=== PATIENT | male | born 1930 | race Caucasian/White ===

== ENCOUNTER 2017-11-05 | Inpatient (IN) | payer OTHER, MEDICAID ==
[~2017-11-05] VITALS: Ht 172.7 cm; Wt 61.2 kg
[2017-11-05] VITALS (8 sets, daily range): BP systolic 83–120; BP diastolic 41–64
[2017-11-05 00:22] LABS: ABG BASE EXCESS 0.6 mmol/L; ABG OXYGEN SATURATION 92.9 % (92.0-98.5); ABG PCO2 46.4 mmHg (35.0-45.0); ABG PH 7.371 (7.350-7.450); ABG PO2 70.2 mmHg (75.0-100.0); AaDO2 451.5 mmHg; COHb 0.9 % (0.5-1.5); MetHb 0.6 % (0.0-1.5); O2Hb 91.5 % (94.0-97.0); SITE, ABG Left Radial; VENT MODE, BG NRB
[2017-11-05] MEDS ORDERED: NITROGLYCERIN 0.4 MG/TAB BOTTLE ONE (00:22)
[2017-11-05] MEDS ORDERED: FUROSEMIDE 40 MG/4 ML VIAL ONE (00:22)
[2017-11-05] MEDS ORDERED: FUROSEMIDE 40 MG/4 ML VIAL IV ONE (00:30)
[2017-11-05] MEDS ORDERED: NITROGLYCERIN 0.4 MG/TAB BOTTLE SL ONE (00:30)
[2017-11-05] MEDS ORDERED: ASPI-1169 PO (00:34)
[2017-11-05] MEDS ORDERED: LEVE500T9 PO (00:34)
[2017-11-05] MEDS ORDERED: CARV3.12 PO (00:34)
[2017-11-05] MEDS ORDERED: ACET-868 PO (00:34)
[2017-11-05] MEDS ORDERED: DONE10TA11 PO (00:34)
[2017-11-05] MEDS ORDERED: NA P133E RC (00:34)
[2017-11-05] MEDS ORDERED: ONDA4TAB10 PO (00:34)
[2017-11-05] MEDS ORDERED: MULT-447 PO (00:34)
[2017-11-05] MEDS ORDERED: PROHEAL PO (00:34)
[2017-11-05] MEDS ORDERED: TRAZ-144 PO (00:34)
[2017-11-05] MEDS ORDERED: BRIM5DRO3 EACHEYE (00:34)
[2017-11-05] MEDS ORDERED: MAGN400O21 PO (00:34)
[2017-11-05] MEDS ORDERED: BISA-79 PR (00:34)
[2017-11-05] MEDS ORDERED: DIVA250T PO (00:34)
[2017-11-05] MEDS ORDERED: MELA3TAB PO (00:34)
[2017-11-05] MEDS ORDERED: DOCU-141 PO (00:34)
[2017-11-05] MEDS ORDERED: SENN-167 PO (00:34)
[2017-11-05 00:37] LABS: BASOPHILS # (AUTO) 0.1 /CMM (0.0-0.2); BASOPHILS % (AUTO) 0.5 % (0.0-2.0); HEMATOCRIT 37 % (39-51); HEMOGLOBIN 11.9 g/dL (13.5-17.5); LYMPHOCYTES # (AUTO) 0.9 /CMM (0.8-4.8); LYMPHOCYTES % (AUTO) 4.7 % (20.0-44.0); MEAN CORPUSCULAR HEMOGLOBIN 29 PG (26.0-33.0); MEAN CORPUSCULAR HGB CONC 32 g/dl (31.0-36.0); MEAN CORPUSCULAR VOLUME 89 fL (80-96); MONOCYTES # (AUTO) 2.2 /CMM (0.1-1.30); MONOCYTES % (AUTO) 12.3 % (2.0-12.0); NEUTROPHILS # (AUTO) 14.8 /CMM (1.8-8.9); NEUTROPHILS % (AUTO) 82.5 % (43.0-81.0); PLATELET COUNT (AUTO) 237 /CMM (150-450); RDW COEFFICIENT OF VARIATION 16.6 (11.5-15.0); RED BLOOD CELL COUNT(AUTO) 4.16 MIL/uL (4.5-6.0); WHITE BLOOD COUNT (AUTO) 17.9 K/uL (4.3-11.0)
[2017-11-05] MEDS ORDERED: LIDOCAINE 2% JEL UROJET 10 ML MM ONE (00:42)
[2017-11-05 00:55] LABS: INR 1.1 (0.87-1.13)
[2017-11-05] MEDS ORDERED: ACETAMINOPHEN 650 MG/SUPP.RECT RC ONE (00:59)
[2017-11-05 01:00] LABS: CALCIUM, SERUM 11.2 mg/dL (8.5-10.1); CARBON DIOXIDE 29 mmol/L (21-32); CHLORIDE 102 mmol/L (98-107); CREATININE 1.2 mg/dL (0.6-1.3); GLUCOSE 192 mg/dL (74-106); POTASSIUM 4.8 mmol/L (3.5-5.1); SODIUM SERUM 138 mmol/L (136-145); UREA NITROGEN, BLOOD 18 mg/dL (7-18)
[2017-11-05] MEDS ORDERED: IV NS 0.9% 500 ML BAG IV ONE (01:00)
[2017-11-05] MEDS ORDERED: ACETAMINOPHEN 325 MG TABLET PO ONE (01:00)
[2017-11-05 01:07] LABS: TROPONIN I < 0.017 ng/mL (0.00-0.056)
[2017-11-05 01:12] LABS: ALANINE AMINOTRANSFERASE 20 U/L (12-78); ALBUMIN 3.5 g/dL (3.4-5.0); ALKALINE PHOSPHATASE 84 U/L (46-116); ASPARTATE AMINOTRANSFERASE 10 U/L (15-37); B-TYPE NATRIURETIC PEPTIDE 1228 PG/ML (0-125); BILIRUBIN,DIRECT 0.1 mg/dL (0.0-0.2); BILIRUBIN,TOTAL 0.4 mg/dL (0.2-1.0); TOTAL PROTEIN, SERUM 7.7 g/dL (6.4-8.2)
[2017-11-05 01:32] LABS: APPEARANCE,URINE SL CLOUDY (CLEAR); BILIRUBIN,URINE NEGATIVE (NEGATIVE); BLOOD, URINE 2+ Ery/uL (NEGATIVE); COLOR,URINE YELLOW (YELLOW); KETONES,URINE NEGATIVE (NEGATIVE); LEUKOCYTE ESTERASE ,URINE NEGATIVE (NEGATIVE); NITRITE, URINE NEGATIVE (NEGATIVE); PROTEIN,URINE 1+ mg/dl (NEGATIVE); UGLUCOSE TRACE mg/dL (NEGATIVE); UROBILINOGEN,URINE 0.2 EU/dL (0.2)
[2017-11-05 01:41] LABS: RBC,URINE 21-50 /HPF (0-2)
[2017-11-05 01:42] LABS: BACTERIA,URINE 3+ /HPF (None Seen); MUCUS,URINE Few /LPF (None Seen); SQUAMOUS EPITHELIAL CELL,UR Few /HPF (None Seen)
[2017-11-05] MEDS ORDERED: AZTREONAM 1 G in IV NS 0.9% 100 ML IV ONE (02:00)
[2017-11-05] MEDS ORDERED: LEVOFLOXACIN 750 MG /D5W 150ML PIGGYBACK IV ONE (02:00)
[2017-11-05] MEDS ORDERED: AZTREONAM 1 G VIAL ONE (02:07)
[2017-11-05] MEDS ORDERED: LEVOFLOXACIN 750 MG /D5W 150ML 150 ML IV ONE (02:07)
[2017-11-05 05:58] LABS: HEMATOCRIT 34 % (39-51); HEMOGLOBIN 11.1 g/dL (13.5-17.5); LYMPHOCYTES # (AUTO) 0.6 /CMM (0.8-4.8); LYMPHOCYTES % (AUTO) 2.7 % (20.0-44.0); MEAN CORPUSCULAR HEMOGLOBIN 29 PG (26.0-33.0); MEAN CORPUSCULAR HGB CONC 33 g/dl (31.0-36.0); MEAN CORPUSCULAR VOLUME 88 fL (80-96); MONOCYTES # (AUTO) 2.7 /CMM (0.1-1.30); MONOCYTES % (AUTO) 11.7 % (2.0-12.0); NEUTROPHILS # (AUTO) 19.7 /CMM (1.8-8.9); NEUTROPHILS % (AUTO) 85.6 % (43.0-81.0); PLATELET COUNT (AUTO) 193 /CMM (150-450); RDW COEFFICIENT OF VARIATION 15.8 (11.5-15.0); RED BLOOD CELL COUNT(AUTO) 3.83 MIL/uL (4.5-6.0)
[2017-11-05] MEDS ORDERED: AMIN30LI4 PO (07:44)
[2017-11-05] MEDS ORDERED: DIVA250T6 PO (07:44)
[2017-11-05] MEDS ORDERED: DOCU250C14 PO (07:44)
[2017-11-05] MEDS: FUROSEMIDE 40 MG/4 ML VIAL IV SCH ×2 (08:47→20:16)
[2017-11-05] MEDS: ENOXAPARIN SODIUM 30 MG/0.3 ML DISP.SYRIN SQ SCH (08:51)
[2017-11-05] MEDS ORDERED: VANCOMYCIN 1 GM in IV D5W 250 ML IV ONE (09:00)
[2017-11-05] MEDS ORDERED: LEVOFLOXACIN 500 MG /D5W 100ML 500 MG in PREMIX 1 EA IV ONE (09:00)
[2017-11-05 09:30] LABS: TROPONIN I < 0.017 ng/mL (0.00-0.056)
[2017-11-05 10:51] LABS: BAND % (MANUAL) 12 % (0.0-5.0); MONOCYTES % (MANUAL) 11 % (0-11.0); NEUTROPHILS % (MANUAL) 77 (42-76)
[2017-11-05 11:02] LABS: ALANINE AMINOTRANSFERASE 16 U/L (12-78); ALBUMIN 2.9 g/dL (3.4-5.0); ALKALINE PHOSPHATASE 71 U/L (46-116); ASPARTATE AMINOTRANSFERASE 11 U/L (15-37); BILIRUBIN,TOTAL 0.6 mg/dL (0.2-1.0); CALCIUM, SERUM 10.9 mg/dL (8.5-10.1); CARBON DIOXIDE 24 mmol/L (21-32); CHLORIDE 104 mmol/L (98-107); CREATININE 1.6 mg/dL (0.6-1.3); GLUCOSE 115 mg/dL (74-106); POTASSIUM 4.6 mmol/L (3.5-5.1); SODIUM SERUM 139 mmol/L (136-145); TOTAL PROTEIN, SERUM 6.9 g/dL (6.4-8.2); UREA NITROGEN, BLOOD 22 mg/dL (7-18)
[2017-11-05] MEDS: AZTREONAM 2 G in IV NS 0.9% 100 ML IV SCH ×2 (12:14→17:35)
[2017-11-05] MEDS ORDERED: AZTREONAM 1 G VIAL IM SCH (13:00)
[2017-11-05 13:20] LABS: CHOLESTEROL 120 mg/dL (<200); HDL CHOLESTEROL 39 mg/dL (40-60); LDL 99 mg/dL (0-99); TRIGLYCERIDES 48 mg/dL (30-150)
[2017-11-05] MEDS ORDERED: FEE PK DOSING 1 MIN EA MC ONE (15:07)
[2017-11-05 15:45] LABS: THYROID STIMULATING HORMONE 0.402 uIU/mL (0.358-3.74)
[2017-11-05] MEDS: VANCOMYCIN 500 MG in IV D5W 100 ML IV SCH (20:19)
[2017-11-06] VITALS (7 sets, daily range): BP systolic 100–173; BP diastolic 54–79
[2017-11-06] MEDS: AZTREONAM 2 G in IV NS 0.9% 100 ML IV SCH (02:11)
[2017-11-06 06:38] LABS: EOSINOPHILS % (AUTO) 0.1 % (0.0-6.0); HEMATOCRIT 31 % (39-51); HEMOGLOBIN 10.5 g/dL (13.5-17.5); LYMPHOCYTES # (AUTO) 1.3 /CMM (0.8-4.8); LYMPHOCYTES % (AUTO) 6.3 % (20.0-44.0); MEAN CORPUSCULAR HEMOGLOBIN 30 PG (26.0-33.0); MEAN CORPUSCULAR HGB CONC 34 g/dl (31.0-36.0); MEAN CORPUSCULAR VOLUME 86 fL (80-96); MONOCYTES # (AUTO) 2.4 /CMM (0.1-1.30); MONOCYTES % (AUTO) 11.5 % (2.0-12.0); NEUTROPHILS # (AUTO) 17.5 /CMM (1.8-8.9); NEUTROPHILS % (AUTO) 82.1 % (43.0-81.0); PLATELET COUNT (AUTO) 185 /CMM (150-450); RDW COEFFICIENT OF VARIATION 15.1 (11.5-15.0); RED BLOOD CELL COUNT(AUTO) 3.56 MIL/uL (4.5-6.0); WHITE BLOOD COUNT (AUTO) 21.2 K/uL (4.3-11.0)
[2017-11-06 06:50] LABS: ALANINE AMINOTRANSFERASE 14 U/L (12-78); ALBUMIN 2.6 g/dL (3.4-5.0); ALKALINE PHOSPHATASE 70 U/L (46-116); ASPARTATE AMINOTRANSFERASE 9 U/L (15-37); BILIRUBIN,TOTAL 0.3 mg/dL (0.2-1.0); CALCIUM, SERUM 10.8 mg/dL (8.5-10.1); CARBON DIOXIDE 29 mmol/L (21-32); CHLORIDE 105 mmol/L (98-107); CREATININE 2.6 mg/dL (0.6-1.3); GLUCOSE 103 mg/dL (74-106); MAGNESIUM 2.1 mg/dL (1.8-2.4); PHOSPHORUS 2.8 mg/dL (2.5-4.9); POTASSIUM 4.7 mmol/L (3.5-5.1); SODIUM SERUM 141 mmol/L (136-145); TOTAL PROTEIN, SERUM 6.9 g/dL (6.4-8.2); UREA NITROGEN, BLOOD 42 mg/dL (7-18)
[2017-11-06 07:52] LABS: B-TYPE NATRIURETIC PEPTIDE 3198 PG/ML (0-125)
[2017-11-06 07:53] LABS: TROPONIN I < 0.017 ng/mL (0.00-0.056)
[2017-11-06] MEDS: LEVOFLOXACIN 250 MG /D5W 50 ML 250 MG in PREMIX 1 EA IV SCH (08:51)
[2017-11-06] MEDS: ENOXAPARIN SODIUM 30 MG/0.3 ML DISP.SYRIN SQ SCH (09:04)
[2017-11-06] MEDS ORDERED: MAGNESIUM HYDROXIDE 30 ML UDC PO PRN (10:00)
[2017-11-06] MEDS ORDERED: BISACODYL (5 MG) 5 MG TABLET.DR PO PRN (10:00)
[2017-11-06] MEDS: CARVEDILOL 3.125 MG TABLET PO SCH ×2 (10:00→16:24)
[2017-11-06] MEDS ORDERED: ACETAMINOPHEN 325 MG TABLET PO PRN (10:00)
[2017-11-06] MEDS ORDERED: Medication Not On Formulary EA (Melatonin 3 MG) PO PRN (10:00)
[2017-11-06] MEDS ORDERED: NA PHOS,M-B/NA PHOS,DI-BA 1 EA ENEMA RC PRN (10:00)
[2017-11-06] MEDS ORDERED: ONDANSETRON 4 MG TAB.RAPDIS PO PRN (10:30)
[2017-11-06] MEDS: VANCOMYCIN 500 MG in IV D5W 100 ML IV SCH (10:34)
[2017-11-06 10:40] LABS: BAND % (MANUAL) 19 % (0.0-5.0); LYMPHOCYTES % (MANUAL) 5 % (16-48); MONOCYTES % (MANUAL) 4 % (0-11.0); NEUTROPHILS % (MANUAL) 72 (42-76)
[2017-11-06 11:22] LABS: ABG BASE EXCESS 1.9 mmol/L; ABG OXYGEN SATURATION 94.2 % (92.0-98.5); ABG PH 7.435 (7.350-7.450); ABG PO2 72.5 mmHg (75.0-100.0); AaDO2 137.8 mmHg; COHb 0.3 % (0.5-1.5); MetHb 0.4 % (0.0-1.5); O2Hb 93.5 % (94.0-97.0); SITE, ABG Right Radial
[2017-11-06] MEDS: DOCUSATE SODIUM 250 MG CAPSULE PO SCH ×2 (11:50→16:18)
[2017-11-06] MEDS: BRIMONIDINE TARTRATE OPHT SOLN 5 ML BOTTLE EACHEYE SCH ×2 (11:50→16:18)
[2017-11-06] MEDS: PROSOURCE / PROSTAT (PYXIS) 30 ML UDC PO SCH ×3 (11:50→16:18)
[2017-11-06] MEDS: DIVALPROEX SODIUM 250 MG TABLET.DR PO SCH ×2 (11:50→16:18)
[2017-11-06] MEDS: MULTIVIT, IRON, MIN NO. 8, FA 1 TAB PO SCH (11:50)
[2017-11-06] MEDS: LEVETIRACETAM (250 MG) 250 MG TABLET PO SCH ×2 (11:51→21:30)
[2017-11-06] MEDS: ASPIRIN 81 MG TAB.CHEW PO SCH (11:51)
[2017-11-06] MEDS: AZTREONAM 1 G in IV NS 0.9% 100 ML IV SCH ×2 (13:14→18:01)
[2017-11-06 17:23] LABS: APPEARANCE,URINE CLEAR (CLEAR)
[2017-11-06 17:24] LABS: BILIRUBIN,URINE NEGATIVE (NEGATIVE); BLOOD, URINE 3+ Ery/uL (NEGATIVE); COLOR,URINE YELLOW (YELLOW); PROTEIN,URINE 2+ mg/dl (NEGATIVE); UGLUCOSE NEGATIVE (NEGATIVE)
[2017-11-06 17:25] LABS: KETONES,URINE NEGATIVE (NEGATIVE); LEUKOCYTE ESTERASE ,URINE NEGATIVE (NEGATIVE); NITRITE, URINE NEGATIVE (NEGATIVE); UROBILINOGEN,URINE 0.2 EU/dL (0.2)
[2017-11-06 18:05] LABS: CREATININE, URINE 117.3 MG/DL (30.0-125.0); URINE TOTAL PROTEIN 184.5 mg/dL (0-11.9)
[2017-11-06 18:43] LABS: BACTERIA,URINE 1+ /HPF (None Seen); SQUAMOUS EPITHELIAL CELL,UR 0-2 /HPF (None Seen); URINE AMORPHOUS URATE Few /HPF (None Seen); WBC,URINE 0-2 /HPF (0-3)
[2017-11-06 19:03] LABS: EOSINOPHIL,URINE None Seen
[2017-11-06] MEDS: SENNOSIDES 8.6 MG TABLET PO SCH (21:33)
[2017-11-06] MEDS: TRAZODONE 50 MG TABLET PO SCH (21:33)
[2017-11-06] MEDS: DONEPEZIL 5 MG TABLET PO SCH (21:33)
[2017-11-07] VITALS (8 sets, daily range): BP systolic 142–191; BP diastolic 69–88
[2017-11-07] MEDS: AZTREONAM 1 G in IV NS 0.9% 100 ML IV SCH ×2 (02:34→11:10)
[2017-11-07 06:34] LABS: EOSINOPHILS % (AUTO) 0.1 % (0.0-6.0); HEMATOCRIT 31 % (39-51); HEMOGLOBIN 10.3 g/dL (13.5-17.5); LYMPHOCYTES # (AUTO) 0.9 /CMM (0.8-4.8); LYMPHOCYTES % (AUTO) 7.5 % (20.0-44.0); MEAN CORPUSCULAR HEMOGLOBIN 29 PG (26.0-33.0); MEAN CORPUSCULAR HGB CONC 33 g/dl (31.0-36.0); MEAN CORPUSCULAR VOLUME 88 fL (80-96); MONOCYTES # (AUTO) 1.3 /CMM (0.1-1.30); MONOCYTES % (AUTO) 11.1 % (2.0-12.0); NEUTROPHILS # (AUTO) 9.8 /CMM (1.8-8.9); NEUTROPHILS % (AUTO) 81.3 % (43.0-81.0); PLATELET COUNT (AUTO) 151 /CMM (150-450); RDW COEFFICIENT OF VARIATION 16.3 (11.5-15.0); RED BLOOD CELL COUNT(AUTO) 3.55 MIL/uL (4.5-6.0); WHITE BLOOD COUNT (AUTO) 12.1 K/uL (4.3-11.0)
[2017-11-07 06:58] LABS: ALANINE AMINOTRANSFERASE 13 U/L (12-78); ALBUMIN 2.5 g/dL (3.4-5.0); ALKALINE PHOSPHATASE 71 U/L (46-116); ASPARTATE AMINOTRANSFERASE 18 U/L (15-37); BILIRUBIN,TOTAL 0.3 mg/dL (0.2-1.0); CALCIUM, SERUM 10.2 mg/dL (8.5-10.1); CARBON DIOXIDE 26 mmol/L (21-32); CHLORIDE 105 mmol/L (98-107); CREATININE 1.9 mg/dL (0.6-1.3); GLUCOSE 98 mg/dL (74-106); MAGNESIUM 2.3 mg/dL (1.8-2.4); PHOSPHORUS 2.4 mg/dL (2.5-4.9); POTASSIUM 4.4 mmol/L (3.5-5.1); SODIUM SERUM 139 mmol/L (136-145); TOTAL PROTEIN, SERUM 6.9 g/dL (6.4-8.2); UREA NITROGEN, BLOOD 47 mg/dL (7-18)
[2017-11-07 07:21] LABS: CREATINE KINASE, TOTAL 53 U/L (39-308)
[2017-11-07 08:55] LABS: ABG BASE EXCESS 1.4 mmol/L; ABG OXYGEN SATURATION 96.2 % (92.0-98.5); ABG PO2 93.8 mmHg (75.0-100.0); AaDO2 71.9 mmHg; COHb 0.3 % (0.5-1.5); MetHb 1.3 % (0.0-1.5); O2Hb 94.7 % (94.0-97.0); SITE, ABG Right Radial; VENT MODE, BG NC 4L
[2017-11-07] MEDS: LEVOFLOXACIN 250 MG /D5W 50 ML 250 MG in PREMIX 1 EA IV SCH (09:02)
[2017-11-07] MEDS: DOCUSATE SODIUM 250 MG CAPSULE PO SCH ×2 (09:03→17:47)
[2017-11-07] MEDS: DIVALPROEX SODIUM 250 MG TABLET.DR PO SCH ×2 (09:03→17:47)
[2017-11-07] MEDS: MULTIVIT, IRON, MIN NO. 8, FA 1 TAB PO SCH (09:03)
[2017-11-07] MEDS: LEVETIRACETAM (250 MG) 250 MG TABLET PO SCH ×2 (09:04→21:23)
[2017-11-07] MEDS: ASPIRIN 81 MG TAB.CHEW PO SCH (09:04)
[2017-11-07] MEDS: CARVEDILOL 3.125 MG TABLET PO SCH ×2 (09:05→17:48)
[2017-11-07] MEDS: ENOXAPARIN SODIUM 30 MG/0.3 ML DISP.SYRIN SQ SCH (09:07)
[2017-11-07] MEDS: PROSOURCE / PROSTAT (PYXIS) 30 ML UDC PO SCH ×3 (09:39→17:49)
[2017-11-07] MEDS: BRIMONIDINE TARTRATE OPHT SOLN 5 ML BOTTLE EACHEYE SCH ×2 (09:40→17:46)
[2017-11-07] MEDS ORDERED: VANCOMYCIN 500 MG in IV D5W 100 ML IV SCH (10:30)
[2017-11-07] MEDS ORDERED: K PHOS NEUTRAL 250 MG TABLET PO ONE (13:00)
[2017-11-07] MEDS: DONEPEZIL 5 MG TABLET PO SCH (21:23)
[2017-11-07] MEDS: SENNOSIDES 8.6 MG TABLET PO SCH (21:24)
[2017-11-07] MEDS: TRAZODONE 50 MG TABLET PO SCH (21:24)
[2017-11-07] MEDS ORDERED: CLONIDINE HCL 0.1 MG TABLET ONE (22:43)
[2017-11-07] MEDS: CLONIDINE HCL 0.1 MG TABLET PO PRN (22:46)
[2017-11-08] VITALS (7 sets, daily range): BP systolic 126–175; BP diastolic 62–97
[2017-11-08] MEDS ORDERED: LORAZEPAM 0.5 MG TABLET ONE (02:21)
[2017-11-08] MEDS: LORAZEPAM 0.5 MG TABLET PO PRN (02:23)
[2017-11-08 06:37] LABS: CALCIUM, SERUM 10.7 mg/dL (8.5-10.1); CARBON DIOXIDE 27 mmol/L (21-32); CHLORIDE 106 mmol/L (98-107); CREATININE 1.3 mg/dL (0.6-1.3); GLUCOSE 114 mg/dL (74-106); PHOSPHORUS 2.3 mg/dL (2.5-4.9); POTASSIUM 4.4 mmol/L (3.5-5.1); SODIUM SERUM 141 mmol/L (136-145); UREA NITROGEN, BLOOD 41 mg/dL (7-18)
[2017-11-08] MEDS: LEVOFLOXACIN 250 MG /D5W 50 ML 250 MG in PREMIX 1 EA IV SCH (08:34)
[2017-11-08] MEDS: ASPIRIN 81 MG TAB.CHEW PO SCH (08:37)
[2017-11-08] MEDS: MULTIVIT, IRON, MIN NO. 8, FA 1 TAB PO SCH (08:37)
[2017-11-08] MEDS: LEVETIRACETAM (250 MG) 250 MG TABLET PO SCH ×2 (08:37→21:25)
[2017-11-08] MEDS: DIVALPROEX SODIUM 250 MG TABLET.DR PO SCH ×2 (08:37→16:21)
[2017-11-08] MEDS: BRIMONIDINE TARTRATE OPHT SOLN 5 ML BOTTLE EACHEYE SCH ×2 (08:38→15:48)
[2017-11-08] MEDS: CARVEDILOL 3.125 MG TABLET PO SCH ×2 (08:38→15:50)
[2017-11-08] MEDS: PROSOURCE / PROSTAT (PYXIS) 30 ML UDC PO SCH ×3 (08:40→15:49)
[2017-11-08] MEDS: DOCUSATE SODIUM 250 MG CAPSULE PO SCH ×2 (09:00→15:48)
[2017-11-08] MEDS: ENOXAPARIN SODIUM 30 MG/0.3 ML DISP.SYRIN SQ SCH (09:01)
[2017-11-08] MEDS ORDERED: K PHOS NEUTRAL 250 MG TABLET PO ONE (13:30)
[2017-11-08 17:34] LABS: APPEARANCE,URINE SL CLOUDY (CLEAR); BILIRUBIN,URINE NEGATIVE (NEGATIVE); BLOOD, URINE 3+ Ery/uL (NEGATIVE); COLOR,URINE AMBER (YELLOW); KETONES,URINE NEGATIVE (NEGATIVE); LEUKOCYTE ESTERASE ,URINE TRACE (NEGATIVE); NITRITE, URINE NEGATIVE (NEGATIVE); PROTEIN,URINE 2+ mg/dl (NEGATIVE); UGLUCOSE NEGATIVE (NEGATIVE); UROBILINOGEN,URINE 0.2 EU/dL (0.2)
[2017-11-08 18:06] LABS: BACTERIA,URINE Rare /HPF (None Seen); RBC,URINE TOO NUMEROUS TO COUN /HPF (0-2); SQUAMOUS EPITHELIAL CELL,UR None Seen /HPF (None Seen); WBC,URINE 0-2 /HPF (0-3)
[2017-11-08] MEDS: DONEPEZIL 5 MG TABLET PO SCH (21:25)
[2017-11-08] MEDS: SENNOSIDES 8.6 MG TABLET PO SCH (21:26)
[2017-11-08] MEDS: TRAZODONE 50 MG TABLET PO SCH (21:26)
[2017-11-08] MEDS: CLONIDINE HCL 0.1 MG TABLET PO PRN (22:38)
[2017-11-09] VITALS: BP 103/56
[2017-11-09] MEDS: LORAZEPAM 0.5 MG TABLET PO PRN ×3 (00:10→17:52)
[2017-11-09 04:00] VITALS: BP 152/75
[2017-11-09 06:50] LABS: CALCIUM, SERUM 10.1 mg/dL (8.5-10.1); CARBON DIOXIDE 29 mmol/L (21-32); CHLORIDE 108 mmol/L (98-107); CREATININE 1.2 mg/dL (0.6-1.3); GLUCOSE 119 mg/dL (74-106); PHOSPHORUS 2.6 mg/dL (2.5-4.9); POTASSIUM 4.1 mmol/L (3.5-5.1); SODIUM SERUM 142 mmol/L (136-145); UREA NITROGEN, BLOOD 36 mg/dL (7-18)
[2017-11-09 08:00] VITALS: BP 122/55
[2017-11-09] MEDS: DOCUSATE SODIUM 250 MG CAPSULE PO SCH ×2 (08:46→16:25)
[2017-11-09] MEDS: DIVALPROEX SODIUM 250 MG TABLET.DR PO SCH ×3 (08:46→16:25)
[2017-11-09] MEDS: MULTIVIT, IRON, MIN NO. 8, FA 1 TAB PO SCH (08:46)
[2017-11-09] MEDS: ASPIRIN 81 MG TAB.CHEW PO SCH (08:46)
[2017-11-09] MEDS: LEVOFLOXACIN 250 MG /D5W 50 ML 250 MG in PREMIX 1 EA IV SCH (08:49)
[2017-11-09] MEDS: ENOXAPARIN SODIUM 30 MG/0.3 ML DISP.SYRIN SQ SCH (08:50)
[2017-11-09] MEDS: PROSOURCE / PROSTAT (PYXIS) 30 ML UDC PO SCH ×3 (08:50→16:28)
[2017-11-09] MEDS: CARVEDILOL 3.125 MG TABLET PO SCH ×2 (08:50→16:27)
[2017-11-09] MEDS: BRIMONIDINE TARTRATE OPHT SOLN 5 ML BOTTLE EACHEYE SCH ×2 (09:09→16:28)
[2017-11-09] MEDS: LEVETIRACETAM (250 MG) 250 MG TABLET PO SCH ×2 (09:09→21:21)
[2017-11-09] MEDS: risperiDONE 0.25 MG TABLET PO SCH ×2 (12:18→16:25)
[2017-11-09] MEDS: BENZTROPINE MESYLATE (1 MG) 1 MG TABLET PO SCH ×2 (12:19→16:25)
[2017-11-09 16:00] VITALS: BP 113/64
[2017-11-09 20:00] VITALS: BP 126/69
[2017-11-09] MEDS: DONEPEZIL 5 MG TABLET PO SCH (21:21)
[2017-11-09] MEDS: TRAZODONE 50 MG TABLET PO SCH (21:22)
[2017-11-09] MEDS: SENNOSIDES 8.6 MG TABLET PO SCH (21:22)
[2017-11-10] MEDS: LORAZEPAM 0.5 MG TABLET PO PRN ×3 (00:48→22:09)
[2017-11-10 04:00] VITALS: BP 132/66
[2017-11-10 07:36] LABS: CALCIUM, SERUM 10.4 mg/dL (8.5-10.1); CARBON DIOXIDE 31 mmol/L (21-32); CHLORIDE 109 mmol/L (98-107); CREATININE 1.2 mg/dL (0.6-1.3); GLUCOSE 103 mg/dL (74-106); POTASSIUM 3.9 mmol/L (3.5-5.1); SODIUM SERUM 144 mmol/L (136-145); UREA NITROGEN, BLOOD 34 mg/dL (7-18)
[2017-11-10] MEDS: LEVOFLOXACIN 250 MG /D5W 50 ML 250 MG in PREMIX 1 EA IV SCH (09:41)
[2017-11-10] MEDS: risperiDONE 0.25 MG TABLET PO SCH ×4 (09:41→22:00)
[2017-11-10] MEDS: DIVALPROEX SODIUM 250 MG TABLET.DR PO SCH ×3 (09:41→16:49)
[2017-11-10] MEDS: BENZTROPINE MESYLATE (1 MG) 1 MG TABLET PO SCH ×3 (09:41→16:50)
[2017-11-10] MEDS: ASPIRIN 81 MG TAB.CHEW PO SCH (09:41)
[2017-11-10] MEDS: DOCUSATE SODIUM 250 MG CAPSULE PO SCH ×2 (09:41→16:49)
[2017-11-10] MEDS: MULTIVIT, IRON, MIN NO. 8, FA 1 TAB PO SCH (09:41)
[2017-11-10] MEDS: LEVETIRACETAM (250 MG) 250 MG TABLET PO SCH ×2 (09:42→22:09)
[2017-11-10] MEDS: PROSOURCE / PROSTAT (PYXIS) 30 ML UDC PO SCH ×3 (09:42→16:50)
[2017-11-10] MEDS: CARVEDILOL 3.125 MG TABLET PO SCH ×2 (09:43→16:50)
[2017-11-10] MEDS: ENOXAPARIN SODIUM 30 MG/0.3 ML DISP.SYRIN SQ SCH (09:54)
[2017-11-10] MEDS: BRIMONIDINE TARTRATE OPHT SOLN 5 ML BOTTLE EACHEYE SCH ×2 (09:55→16:51)
[2017-11-10 12:00] VITALS: BP 154/69
[2017-11-10 20:00] VITALS: BP 154/87
[2017-11-10] MEDS: TRAZODONE 50 MG TABLET PO SCH (22:09)
[2017-11-10] MEDS: DONEPEZIL 5 MG TABLET PO SCH (22:10)
[2017-11-10] MEDS: SENNOSIDES 8.6 MG TABLET PO SCH (22:10)
[2017-11-10] MEDS ORDERED: risperiDONE 1 MG TABLET ONE (23:07)
[2017-11-11 04:00] VITALS: BP 166/83
[2017-11-11 06:45] VITALS: BP 146/67
[2017-11-11 08:00] VITALS: BP 124/68
[2017-11-11 08:08] LABS: *SPE A/G RATIO 0.9 (0.7-1.7); *SPE ALBUMIN 2.8 g/dL (2.9-4.4); *SPE ALPHA-1-GLOBULIN 0.4 g/dL (0.0-0.4); *SPE BETA GLOBULIN 0.7 g/dL (0.7-1.3); *SPE M-SPIKE 0.6 g/dL (Not Observed); *SPEGAMMA GLOBULIN 0.9 g/dL (0.4-1.8)
[2017-11-11 08:13] LABS: BASOPHILS % (AUTO) 0.2 % (0.0-2.0); EOSINOPHILS # (AUTO) 0.1 /CMM (0.0-0.7); EOSINOPHILS % (AUTO) 1.1 % (0.0-6.0); HEMATOCRIT 30 % (39-51); HEMOGLOBIN 9.9 g/dL (13.5-17.5); LYMPHOCYTES # (AUTO) 1.3 /CMM (0.8-4.8); LYMPHOCYTES % (AUTO) 18.6 % (20.0-44.0); MEAN CORPUSCULAR HEMOGLOBIN 29 PG (26.0-33.0); MEAN CORPUSCULAR HGB CONC 33 g/dl (31.0-36.0); MEAN CORPUSCULAR VOLUME 87 fL (80-96); MONOCYTES # (AUTO) 0.8 /CMM (0.1-1.30); NEUTROPHILS # (AUTO) 4.8 /CMM (1.8-8.9); NEUTROPHILS % (AUTO) 68.1 % (43.0-81.0); PLATELET COUNT (AUTO) 211 /CMM (150-450); RDW COEFFICIENT OF VARIATION 16.6 (11.5-15.0); RED BLOOD CELL COUNT(AUTO) 3.43 MIL/uL (4.5-6.0)
[2017-11-11 08:21] LABS: CALCIUM, SERUM 10.7 mg/dL (8.5-10.1); CARBON DIOXIDE 29 mmol/L (21-32); CHLORIDE 110 mmol/L (98-107); CREATININE 1.2 mg/dL (0.6-1.3); GLUCOSE 97 mg/dL (74-106); MAGNESIUM 2.5 mg/dL (1.8-2.4); PHOSPHORUS 2.7 mg/dL (2.5-4.9); POTASSIUM 4.1 mmol/L (3.5-5.1); SODIUM SERUM 144 mmol/L (136-145); UREA NITROGEN, BLOOD 33 mg/dL (7-18)
[2017-11-11] MEDS: ENOXAPARIN SODIUM 30 MG/0.3 ML DISP.SYRIN SQ SCH (08:44)
[2017-11-11] MEDS: LEVOFLOXACIN (250MG) 250 MG TABLET PO SCH (08:47)
[2017-11-11] MEDS: PROSOURCE / PROSTAT (PYXIS) 30 ML UDC PO SCH ×3 (08:47→17:49)
[2017-11-11] MEDS: LEVETIRACETAM (250 MG) 250 MG TABLET PO SCH ×2 (08:47→20:50)
[2017-11-11] MEDS: DOCUSATE SODIUM 250 MG CAPSULE PO SCH ×2 (08:47→17:49)
[2017-11-11] MEDS: risperiDONE 0.25 MG TABLET PO SCH ×4 (08:47→21:59)
[2017-11-11] MEDS: ASPIRIN 81 MG TAB.CHEW PO SCH (08:48)
[2017-11-11] MEDS: MULTIVIT, IRON, MIN NO. 8, FA 1 TAB PO SCH (08:48)
[2017-11-11] MEDS: BENZTROPINE MESYLATE (1 MG) 1 MG TABLET PO SCH ×3 (08:48→17:49)
[2017-11-11] MEDS: DIVALPROEX SODIUM 250 MG TABLET.DR PO SCH ×3 (08:48→17:49)
[2017-11-11] MEDS: CARVEDILOL 3.125 MG TABLET PO SCH ×2 (08:48→17:49)
[2017-11-11] MEDS: BRIMONIDINE TARTRATE OPHT SOLN 5 ML BOTTLE EACHEYE SCH ×2 (08:49→17:49)
[2017-11-11 16:00] VITALS: BP_SYST 124; BP_SYST 149; BP_DIAS 68; BP_DIAS 84
[2017-11-11 20:00] VITALS: BP 138/75
[2017-11-11 20:25] VITALS: BP 138/75
[2017-11-11] MEDS: LORAZEPAM 0.5 MG TABLET PO SCH (21:53)
[2017-11-11] MEDS: DONEPEZIL 5 MG TABLET PO SCH (21:58)
[2017-11-11] MEDS: SENNOSIDES 8.6 MG TABLET PO SCH (21:59)
[2017-11-11] MEDS ORDERED: DIVALPROEX SODIUM 250 MG TABLET.DR PO SCH (22:00)
[2017-11-12 04:00] VITALS: BP 122/63
[2017-11-12 04:01] VITALS: BP 122/63
[2017-11-12] MEDS: CARVEDILOL 3.125 MG TABLET PO SCH ×2 (09:00→16:40)
[2017-11-12] MEDS: DOCUSATE SODIUM 250 MG CAPSULE PO SCH ×2 (09:00→16:41)
[2017-11-12] MEDS: BENZTROPINE MESYLATE (1 MG) 1 MG TABLET PO SCH ×3 (09:29→16:40)
[2017-11-12] MEDS: DIVALPROEX SODIUM 250 MG TABLET.DR PO SCH ×3 (09:29→16:40)
[2017-11-12] MEDS: BRIMONIDINE TARTRATE OPHT SOLN 5 ML BOTTLE EACHEYE SCH ×2 (09:29→16:41)
[2017-11-12] MEDS: ASPIRIN 81 MG TAB.CHEW PO SCH (09:29)
[2017-11-12] MEDS: LEVOFLOXACIN (250MG) 250 MG TABLET PO SCH (09:29)
[2017-11-12] MEDS: MULTIVIT, IRON, MIN NO. 8, FA 1 TAB PO SCH (09:29)
[2017-11-12] MEDS: risperiDONE 0.25 MG TABLET PO SCH ×3 (09:29→16:40)
[2017-11-12] MEDS: LEVETIRACETAM (250 MG) 250 MG TABLET PO SCH ×2 (09:29→21:01)
[2017-11-12] MEDS: PROSOURCE / PROSTAT (PYXIS) 30 ML UDC PO SCH ×3 (09:31→16:41)
[2017-11-12] MEDS: ENOXAPARIN SODIUM 30 MG/0.3 ML DISP.SYRIN SQ SCH (09:33)
[2017-11-12 09:48] VITALS: BP 141/73
[2017-11-12] MEDS: CLONIDINE HCL 0.1 MG TABLET PO PRN (15:44)
[2017-11-12 16:00] VITALS: BP 164/84
[2017-11-12] MEDS: risperiDONE-M 0.5 MG TAB.RAPDIS PO SCH (18:00)
[2017-11-12 20:00] VITALS: BP 137/76
[2017-11-12] MEDS: DIVALPROEX SODIUM 125 MG CAP.SPRINK PO SCH (21:00)
[2017-11-12] MEDS: DONEPEZIL 5 MG TABLET PO SCH (22:12)
[2017-11-12] MEDS: SENNOSIDES 8.6 MG TABLET PO SCH (22:13)
[2017-11-12] MEDS: LORAZEPAM 0.5 MG TABLET PO SCH (22:13)
[2017-11-13 08:00] VITALS: BP 137/69
[2017-11-13 08:24] LABS: CARBON DIOXIDE 29 mmol/L (21-32); CHLORIDE 110 mmol/L (98-107); CREATININE 1.2 mg/dL (0.6-1.3); GLUCOSE 90 mg/dL (74-106); MAGNESIUM 2.3 mg/dL (1.8-2.4); PHOSPHORUS 2.5 mg/dL (2.5-4.9); POTASSIUM 4.8 mmol/L (3.5-5.1); SODIUM SERUM 144 mmol/L (136-145); UREA NITROGEN, BLOOD 30 mg/dL (7-18)
[2017-11-13] MEDS: BRIMONIDINE TARTRATE OPHT SOLN 5 ML BOTTLE EACHEYE SCH ×2 (08:48→17:45)
[2017-11-13] MEDS: CARVEDILOL 3.125 MG TABLET PO SCH ×2 (08:50→17:40)
[2017-11-13] MEDS: DIVALPROEX SODIUM 125 MG CAP.SPRINK PO SCH ×3 (08:50→17:39)
[2017-11-13] MEDS: LEVOFLOXACIN (250MG) 250 MG TABLET PO SCH (08:50)
[2017-11-13] MEDS: ASPIRIN 81 MG TAB.CHEW PO SCH (08:50)
[2017-11-13] MEDS: DOCUSATE SODIUM 250 MG CAPSULE PO SCH ×2 (08:51→17:40)
[2017-11-13] MEDS: risperiDONE-M 0.5 MG TAB.RAPDIS PO SCH ×4 (08:51→20:20)
[2017-11-13] MEDS: MULTIVIT, IRON, MIN NO. 8, FA 1 TAB PO SCH (08:51)
[2017-11-13] MEDS: LEVETIRACETAM (250 MG) 250 MG TABLET PO SCH ×2 (08:52→20:20)
[2017-11-13] MEDS: PROSOURCE / PROSTAT (PYXIS) 30 ML UDC PO SCH ×3 (08:54→17:41)
[2017-11-13] MEDS ORDERED: BENZTROPINE MESYLATE (1 MG) 1 MG TABLET PO SCH (09:00)
[2017-11-13] MEDS: ENOXAPARIN SODIUM 30 MG/0.3 ML DISP.SYRIN SQ SCH (09:06)
[2017-11-13] MEDS ORDERED: Z GUARD REMEDY 2 OZ OINT TP PRN (10:30)
[2017-11-13 11:28] LABS: EOSINOPHILS % (AUTO) 0.7 % (0.0-6.0); HEMATOCRIT 27 % (39-51); HEMOGLOBIN 8.9 g/dL (13.5-17.5); LYMPHOCYTES # (AUTO) 1.1 /CMM (0.8-4.8); LYMPHOCYTES % (AUTO) 20.4 % (20.0-44.0); MEAN CORPUSCULAR HEMOGLOBIN 29 PG (26.0-33.0); MEAN CORPUSCULAR HGB CONC 33 g/dl (31.0-36.0); MEAN CORPUSCULAR VOLUME 86 fL (80-96); MONOCYTES # (AUTO) 0.5 /CMM (0.1-1.30); MONOCYTES % (AUTO) 8.6 % (2.0-12.0); NEUTROPHILS # (AUTO) 3.8 /CMM (1.8-8.9); NEUTROPHILS % (AUTO) 70.3 % (43.0-81.0); PLATELET COUNT (AUTO) 229 /CMM (150-450); RDW COEFFICIENT OF VARIATION 15.8 (11.5-15.0); WHITE BLOOD COUNT (AUTO) 5.4 K/uL (4.3-11.0)
[2017-11-13] MEDS: BENZTROPINE MESYLATE (1 MG) 1 MG TABLET PO SCH ×2 (12:25→17:40)
[2017-11-13 15:53] VITALS: BP 160/72
[2017-11-13 16:00] VITALS: BP 160/72
[2017-11-13 20:00] VITALS: BP 140/66
[2017-11-13] MEDS: LORAZEPAM 0.5 MG TABLET PO SCH (21:16)
[2017-11-13] MEDS: SENNOSIDES 8.6 MG TABLET PO SCH (21:16)
[2017-11-13] MEDS: DONEPEZIL 5 MG TABLET PO SCH (21:17)
[2017-11-13] MEDS: LORAZEPAM 0.5 MG TABLET PO PRN (22:32)
[2017-11-14 04:00] VITALS: BP 133/70
[2017-11-14 06:55] LABS: CARBON DIOXIDE 30 mmol/L (21-32); CHLORIDE 107 mmol/L (98-107); CREATININE 1.1 mg/dL (0.6-1.3); GLUCOSE 92 mg/dL (74-106); MAGNESIUM 2.1 mg/dL (1.8-2.4); PHOSPHORUS 2.5 mg/dL (2.5-4.9); POTASSIUM 4.3 mmol/L (3.5-5.1); SODIUM SERUM 142 mmol/L (136-145); UREA NITROGEN, BLOOD 32 mg/dL (7-18)
[2017-11-14 06:59] LABS: BASOPHILS % (AUTO) 0.1 % (0.0-2.0); EOSINOPHILS # (AUTO) 0.1 /CMM (0.0-0.7); EOSINOPHILS % (AUTO) 1.2 % (0.0-6.0); HEMATOCRIT 28 % (39-51); HEMOGLOBIN 9.6 g/dL (13.5-17.5); LYMPHOCYTES # (AUTO) 1.5 /CMM (0.8-4.8); LYMPHOCYTES % (AUTO) 22.4 % (20.0-44.0); MEAN CORPUSCULAR HEMOGLOBIN 29 PG (26.0-33.0); MEAN CORPUSCULAR HGB CONC 34 g/dl (31.0-36.0); MEAN CORPUSCULAR VOLUME 87 fL (80-96); MONOCYTES # (AUTO) 0.8 /CMM (0.1-1.30); MONOCYTES % (AUTO) 12.4 % (2.0-12.0); NEUTROPHILS # (AUTO) 4.2 /CMM (1.8-8.9); NEUTROPHILS % (AUTO) 63.9 % (43.0-81.0); PLATELET COUNT (AUTO) 226 /CMM (150-450); RDW COEFFICIENT OF VARIATION 16.9 (11.5-15.0); RED BLOOD CELL COUNT(AUTO) 3.25 MIL/uL (4.5-6.0); WHITE BLOOD COUNT (AUTO) 6.5 K/uL (4.3-11.0)
[2017-11-14 08:15] VITALS: BP 154/76
[2017-11-14] MEDS: PROSOURCE / PROSTAT (PYXIS) 30 ML UDC PO SCH ×3 (09:43→17:32)
[2017-11-14] MEDS: risperiDONE-M 0.5 MG TAB.RAPDIS PO SCH ×4 (09:43→20:00)
[2017-11-14] MEDS: BRIMONIDINE TARTRATE OPHT SOLN 5 ML BOTTLE EACHEYE SCH ×2 (09:43→17:38)
[2017-11-14] MEDS: LEVOFLOXACIN (250MG) 250 MG TABLET PO SCH (09:43)
[2017-11-14] MEDS: DOCUSATE SODIUM 250 MG CAPSULE PO SCH ×2 (09:44→17:33)
[2017-11-14] MEDS: MULTIVIT, IRON, MIN NO. 8, FA 1 TAB PO SCH (09:44)
[2017-11-14] MEDS: DIVALPROEX SODIUM 125 MG CAP.SPRINK PO SCH ×3 (09:44→17:33)
[2017-11-14] MEDS: ASPIRIN 81 MG TAB.CHEW PO SCH (09:44)
[2017-11-14] MEDS: BENZTROPINE MESYLATE (1 MG) 1 MG TABLET PO SCH ×3 (09:44→17:33)
[2017-11-14] MEDS: LEVETIRACETAM (250 MG) 250 MG TABLET PO SCH ×2 (09:44→20:01)
[2017-11-14] MEDS: CARVEDILOL 3.125 MG TABLET PO SCH ×2 (09:45→17:34)
[2017-11-14] MEDS: ENOXAPARIN SODIUM 30 MG/0.3 ML DISP.SYRIN SQ SCH (09:46)
[2017-11-14 16:04] VITALS: BP 134/81
[2017-11-14 20:00] VITALS: BP 145/71
[2017-11-14] MEDS: LORAZEPAM 0.5 MG TABLET PO SCH (21:01)
[2017-11-14] MEDS: DONEPEZIL 5 MG TABLET PO SCH (21:01)
[2017-11-14] MEDS: SENNOSIDES 8.6 MG TABLET PO SCH (21:01)
[2017-11-15 06:35] LABS: BASOPHILS % (AUTO) 0.1 % (0.0-2.0); EOSINOPHILS % (AUTO) 0.8 % (0.0-6.0); HEMATOCRIT 28 % (39-51); HEMOGLOBIN 9.3 g/dL (13.5-17.5); LYMPHOCYTES # (AUTO) 1.2 /CMM (0.8-4.8); LYMPHOCYTES % (AUTO) 21.7 % (20.0-44.0); MEAN CORPUSCULAR HEMOGLOBIN 29 PG (26.0-33.0); MEAN CORPUSCULAR HGB CONC 34 g/dl (31.0-36.0); MEAN CORPUSCULAR VOLUME 87 fL (80-96); MONOCYTES # (AUTO) 0.7 /CMM (0.1-1.30); MONOCYTES % (AUTO) 11.9 % (2.0-12.0); NEUTROPHILS # (AUTO) 3.7 /CMM (1.8-8.9); NEUTROPHILS % (AUTO) 65.5 % (43.0-81.0); PLATELET COUNT (AUTO) 229 /CMM (150-450); RDW COEFFICIENT OF VARIATION 16.9 (11.5-15.0); RED BLOOD CELL COUNT(AUTO) 3.18 MIL/uL (4.5-6.0); WHITE BLOOD COUNT (AUTO) 5.6 K/uL (4.3-11.0)
[2017-11-15 07:01] LABS: CALCIUM, SERUM 10.6 mg/dL (8.5-10.1); CARBON DIOXIDE 30 mmol/L (21-32); CHLORIDE 106 mmol/L (98-107); GLUCOSE 85 mg/dL (74-106); MAGNESIUM 2.1 mg/dL (1.8-2.4); PHOSPHORUS 2.5 mg/dL (2.5-4.9); POTASSIUM 4.3 mmol/L (3.5-5.1); SODIUM SERUM 142 mmol/L (136-145); UREA NITROGEN, BLOOD 25 mg/dL (7-18)
[2017-11-15 08:30] VITALS: BP 156/85
[2017-11-15] MEDS: DOCUSATE SODIUM 250 MG CAPSULE PO SCH ×2 (08:40→16:52)
[2017-11-15] MEDS: DIVALPROEX SODIUM 125 MG CAP.SPRINK PO SCH ×3 (08:40→16:52)
[2017-11-15] MEDS: PROSOURCE / PROSTAT (PYXIS) 30 ML UDC PO SCH ×3 (08:40→16:51)
[2017-11-15] MEDS: BENZTROPINE MESYLATE (1 MG) 1 MG TABLET PO SCH ×3 (08:41→16:52)
[2017-11-15] MEDS: ASPIRIN 81 MG TAB.CHEW PO SCH (08:41)
[2017-11-15] MEDS: LEVOFLOXACIN (250MG) 250 MG TABLET PO SCH (08:41)
[2017-11-15] MEDS: risperiDONE-M 0.5 MG TAB.RAPDIS PO SCH ×4 (08:41→21:14)
[2017-11-15] MEDS: LEVETIRACETAM (250 MG) 250 MG TABLET PO SCH ×2 (08:42→21:14)
[2017-11-15] MEDS: MULTIVIT, IRON, MIN NO. 8, FA 1 TAB PO SCH (08:42)
[2017-11-15] MEDS: CARVEDILOL 3.125 MG TABLET PO SCH ×2 (08:42→16:52)
[2017-11-15] MEDS: BRIMONIDINE TARTRATE OPHT SOLN 5 ML BOTTLE EACHEYE SCH ×2 (08:43→16:51)
[2017-11-15] MEDS: ENOXAPARIN SODIUM 30 MG/0.3 ML DISP.SYRIN SQ SCH (08:46)
[2017-11-15] MEDS: FUROSEMIDE 20 MG/2 ML VIAL IV SCH ×2 (12:44→16:51)
[2017-11-15 16:03] VITALS: BP 146/72
[2017-11-15 20:00] VITALS: BP 150/77
[2017-11-15] MEDS: LORAZEPAM 0.5 MG TABLET PO SCH (21:14)
[2017-11-15] MEDS: SENNOSIDES 8.6 MG TABLET PO SCH (21:14)
[2017-11-15] MEDS: DONEPEZIL 5 MG TABLET PO SCH (21:14)
[2017-11-16 06:56] LABS: CALCIUM, SERUM 10.3 mg/dL (8.5-10.1); CARBON DIOXIDE 34 mmol/L (21-32); CHLORIDE 104 mmol/L (98-107); CREATININE 1.1 mg/dL (0.6-1.3); GLUCOSE 91 mg/dL (74-106); PHOSPHORUS 2.6 mg/dL (2.5-4.9); POTASSIUM 4.2 mmol/L (3.5-5.1); SODIUM SERUM 142 mmol/L (136-145); UREA NITROGEN, BLOOD 26 mg/dL (7-18)
[2017-11-16 08:00] VITALS: BP 118/57
[2017-11-16] MEDS: DOCUSATE SODIUM 250 MG CAPSULE PO SCH ×2 (08:26→16:19)
[2017-11-16] MEDS: risperiDONE-M 0.5 MG TAB.RAPDIS PO SCH ×3 (08:26→16:19)
[2017-11-16] MEDS: LEVETIRACETAM (250 MG) 250 MG TABLET PO SCH (08:26)
[2017-11-16] MEDS: BENZTROPINE MESYLATE (1 MG) 1 MG TABLET PO SCH ×3 (08:26→16:19)
[2017-11-16] MEDS: ASPIRIN 81 MG TAB.CHEW PO SCH (08:26)
[2017-11-16] MEDS: DIVALPROEX SODIUM 125 MG CAP.SPRINK PO SCH ×3 (08:27→16:19)
[2017-11-16] MEDS: FUROSEMIDE 20 MG/2 ML VIAL IV SCH (08:27)
[2017-11-16] MEDS: CARVEDILOL 3.125 MG TABLET PO SCH ×2 (08:27→16:20)
[2017-11-16] MEDS: MULTIVIT, IRON, MIN NO. 8, FA 1 TAB PO SCH (08:27)
[2017-11-16] MEDS: PROSOURCE / PROSTAT (PYXIS) 30 ML UDC PO SCH ×3 (08:28→16:19)
[2017-11-16] MEDS: BRIMONIDINE TARTRATE OPHT SOLN 5 ML BOTTLE EACHEYE SCH ×2 (08:28→16:21)
[2017-11-16] MEDS: ENOXAPARIN SODIUM 30 MG/0.3 ML DISP.SYRIN SQ SCH (08:29)
[2017-11-16 16:00] VITALS: BP 139/75
[2017-11-16 16:20] VITALS: BP 139/75
== END 2017-11-16 17:58 | DRG 871 ==
LOC: ER 00:03 → TELE1 02:10 → MEDSG1 11-08 10:40 → MEDSG2 11-11 06:03
PROVIDERS: ADMIT Internal Medicine; ATTEND Internal Medicine
DX: A41.9 Sepsis, unspecified organism (principal); G92 Toxic encephalopathy; J96.01 Acute respiratory failure with hypoxia; I50.33 Acute on chronic diastolic (congestive) heart failure; N17.9 Acute kidney failure, unspecified; J18.9 Pneumonia, unspecified organism; E87.2 Acidosis; I11.0 Hypertensive heart disease with heart failure; E83.52 Hypercalcemia; R13.10 Dysphagia, unspecified; I48.0 Paroxysmal atrial fibrillation; N39.0 Urinary tract infection, site not specified; G30.9 Alzheimer's disease, unspecified; F02.80 Dementia in other diseases classified elsewhere, unspecified severity, without behavioral disturbance, psychotic disturbance, mood disturbance, and anxiety; B96.4 Proteus (mirabilis) (morganii) as the cause of diseases classified elsewhere; E78.5 Hyperlipidemia, unspecified; F25.0 Schizoaffective disorder, bipolar type; F41.9 Anxiety disorder, unspecified; Z88.0 Allergy status to penicillin; Z66 Do not resuscitate; M81.0 Age-related osteoporosis without current pathological fracture; H91.93 Unspecified hearing loss, bilateral; H40.9 Unspecified glaucoma; Z87.440 Personal history of urinary (tract) infections; G47.00 Insomnia, unspecified; G40.909 Epilepsy, unspecified, not intractable, without status epilepticus; M19.90 Unspecified osteoarthritis, unspecified site; F32.9 Major depressive disorder, single episode, unspecified; R65.20 Severe sepsis without septic shock; L30.9 Dermatitis, unspecified; Z91.19 Patient's noncompliance with other medical treatment and regimen
CPT/HCPCS: 36415; 36600; 71045-TC; 76770-TC; 80048-TC; 80053-TC; 80061-TC; 80076-TC; 80202-TC; 81000-TC; 82306; 82550-TC; 82570-TC; 82652; 82803-TC; 83605-TC; 83735-TC; 83880; 83970; 84100-TC; 84155; 84155-TC; 84165; 84300-TC; 84443-TC; 84484-TC; 85025-TC; 85730-TC; 87040-TC; 87081-TC; 87086-TC; 87186-TC; 87400; 92611-TC; 93307-TC; A4216; A4606; J1650; J1940; J1956; J3370; J3490; J7030; J7050; J7060; Z7610